=== PATIENT | male | born 1975 | race Two or more races ===

== ENCOUNTER 2019-06-21 23:33 | Emergency (ER) | payer OTHER ==
[~2019-06-21] VITALS: Ht 172.7 cm; Wt 77.1 kg
[2019-06-21 23:53] VITALS: BP 134/88
== END 2019-06-22 02:11 | disposition left against medical advice (07) ==
LOC: ER 23:35
DX: S01.91XA Laceration without foreign body of unspecified part of head, initial encounter (principal); Z53.21 Procedure and treatment not carried out due to patient leaving prior to being seen by health care provider; W22.8XXA Striking against or struck by other objects, initial encounter; Y93.89 Activity, other specified; Y99.8 Other external cause status; Y92.89 Other specified places as the place of occurrence of the external cause